=== PATIENT | male | born 2000 | race American Indian/Alaskan Native ===

== ENCOUNTER 2021-06-12 11:07 | Emergency (ER) | payer SELFPAY ==
[2021-06-12] MEDS ORDERED: LIDOCAINE 1%/EPINEPHRINE 1:100,000 VIAL (20 ML) INFILTRATI ONE (11:21)
[2021-06-12] MEDS ORDERED: LIDOCAINE 1%/EPINEPHRINE 1:100,000 VIAL (20 ML) INFILTRATI NR (11:30)
[2021-06-12 11:45] LABS: Amphetamine Screen,Urine Negative; Benzodiazepines Screen,Urine Negative; Cocaine Screen,Urine Negative; Methadone Screen,Urine Negative; Opiate Screen,Urine Negative
[2021-06-12] MEDS ORDERED: TETANUS,DIPH,PERTUSS(ACELL) VACCINE 0.5 ML SYRINGE IM ONE (11:50)
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
[2021-06-12 12:09] LABS: Cannabinoid Screen,Urine Positive
[2021-06-12 12:15] LABS: Bilirubin,Urine NEG (Negative); Blood,Urine NEG (Negative); Color,Urine Yellow (Yellow); Protein,Urine <15 mg/dL mg/dL (Negative); Urobilinogen,Urine < 2.0 mg/dL (<2.0); WBC,Urine < 1.0 /HPF (0.0-6.0)
[2021-06-12 12:27] LABS: RBC,Urine < 1.0 /HPF (0.0-6.0)
[2021-06-12 14:25] LABS: Basophils # (Auto) 0.1 K/mm3 (0.0-0.1); Basophils % (Auto) 0.9 % (0.0-1.8); Eosinophils # (Auto) 0.1 K/mm3 (0.0-0.4); Eosinophils % (Auto) 1.1 % (0.0-4.3); Hematocrit 44.3 % (35.5-45.6); Hemoglobin 14.6 gm/dl (11.8-15.2); Lymphocytes # (Auto) 1.7 K/mm3 (1.2-5.4); Lymphocytes % (Auto) 28.1 % (13.4-35.0); Mean Corpuscular HGB Conc 33 % (32-34); Mean Corpuscular Volume 91 fl (84-94); Monocytes # (Auto) 0.3 K/mm3 (0.0-0.8); Monocytes % (Auto) 5.3 % (0.0-7.3); Platelet Count 275 K/mm3 (140-440); Red Blood Count 4.88 M/mm3 (3.65-5.03); Red Cell Distribution Width 13.1 % (13.2-15.2)
[2021-06-12 14:39] LABS: Blood Urea Nitrogen 9 mg/dL (9-20); Calcium 9.3 mg/dL (8.4-10.2); Hemolysis Index 4
[2021-06-12 14:41] LABS: BUN/Creatinine Ratio 13
[2021-06-12] MEDS ORDERED: LORazepam 1 MG TAB PO ONE (21:00)
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
--- NOTE | 2021-06-13 11:32 | Event Note ---
Date: 06/13/21 Patient is 21 years old male admitted with acute psychotic episode and multiple polysubstance abuse. No overnight issues. Vital signs stable. Labs reviewed and is unremarkable. Waiting for psychiatric inpatient admission.
[2021-06-13] MEDS: DIVALPROEX DR 125 MG TAB PO SCH ×2 (11:53→22:18)
[2021-06-13] MEDS: risperiDONE 0.25 MG TAB PO SCH ×2 (11:54→22:18)
[2021-06-13] MEDS: traZODone 50 MG TAB PO SCH (22:18)
[2021-06-13] MEDS ORDERED: IBUPROFEN 800 MG TAB PO ONE (22:26)
[2021-06-14] MEDS ORDERED: IBUPROFEN 600 MG TAB PO ONE (10:40)
--- NOTE | 2021-06-14 11:16 | Progress Note ---
Subjective - Reason for Consult Consult date: 06/14/21 Reason for consult: [email or web address], SI - Chief Complaint Chief complaint: The patient was seen today. He says he's feeling "so so." The patient says he hears voices but he can't make them out. When asking were they telling him to hurt himself or others, he says "I don't know. I just hear them." He denies SI/HI. REVIEW OF SYSTEMS Constitutional: Negative for weight loss ENT: Negative for stridor Respiratory: Negative for cough or hemoptysis All other systems reviewed and are negative MENTAL STATUS EXAMINATION General Appearance and Behavior: Age appropriate, good hygiene, wearing appropriate clothes. calm, and cooperative Cooperation: Cooperative Psychomotor Behavior: Psychomotor normal Mood: okay Affect and affective range: congruent with stated mood Thought Process: illogical Thought Content: delusions of grandeur, hallucinations Speech: Normal tone and pace Suicidal Ideation: Denies at present Homicidal Ideation: Denies Hallucinations: Denies Delusions: paranoid, delusions of grandeur Impulse Control: poor Insight and Judgment: poor insight and fair judgment Memory: Limited Attention: Attentive Orientation: a/o x 3 Assessment (1) Bipolar Disorder (2) Polysubstance Abuse Treatment Plan [address] 125mg po BID Increase Risperidon 1mg po BID Trazodone 50mg po qhs Disposition: Recommend acute psychiatric inpatient treatment Will follow. Thanks Case staffed with Dr. Roa Mental Status Exam - Vital signs Last Vital Signs Temp 97.2 F L 06/14/21 08:00 Pulse 94 H 06/14/21 08:00 Resp 18 06/14/21 08:00 BP 107/69 06/14/21 08:00 Pulse Ox 99 06/14/21 08:00
--- NOTE | 2021-06-14 11:28 | XRay Report ---
CHEST 2 VIEWS INDICATION / CLINICAL INFORMATION: covid w/cp. COMPARISON: None available. FINDINGS: SUPPORT DEVICES: None. HEART / MEDIASTINUM: No significant abnormality. LUNGS / PLEURA: No significant pulmonary or pleural abnormality. No pneumothorax. ADDITIONAL FINDINGS: No significant additional findings. IMPRESSION: 1. No acute findings. Signer Name: Gary Sanches MD Signed: 06/14/2021 11:24 AM Workstation Name: [employer]
[2021-06-14] MEDS: risperiDONE 0.25 MG TAB PO SCH (11:42)
--- NOTE | 2021-06-14 11:53 | Emergency Department Report ---
Blank Doc - Documentation Documentation: 21-year-old male currently on 1013 with psychosis. Tolerating p.o. medication. Vital signs normal. Covid negative
[2021-06-14] MEDS: DIVALPROEX DR 125 MG TAB PO SCH ×2 (12:18→22:20)
[2021-06-14] MEDS: traZODone 50 MG TAB PO SCH (22:20)
[2021-06-14] MEDS: risperiDONE 1 MG TAB PO SCH (22:20)
[2021-06-14] MEDS ORDERED: ONDANSETRON 4 MG ODT TAB PO ONE (22:41)
[2021-06-14] MEDS ORDERED: MAGNESIUM HYDROXIDE (MOM) ORAL LIQD UDC PO ONE (22:41)
[2021-06-15 05:56] VITALS: BP 141/75
[2021-06-15] MEDS: DIVALPROEX DR 125 MG TAB PO SCH (10:32)
[2021-06-15] MEDS: risperiDONE 1 MG TAB PO SCH (10:32)
--- NOTE | 2021-06-15 11:58 | Progress Note ---
Subjective - Reason for Consult Consult date: 06/15/21 Reason for consult: SI - Chief Complaint Chief complaint: The patient was seen today. He says he feels "good." The patient says "I don't have suicidal thoughts or homicidal thoughts." He then says "and no I'm not hallucinating. I'm just trying to get out of here and go to rehab." REVIEW OF SYSTEMS Constitutional: Negative for weight loss ENT: Negative for stridor Respiratory: Negative for cough or hemoptysis All other systems reviewed and are negative MENTAL STATUS EXAMINATION General Appearance and Behavior: Age appropriate, good hygiene, wearing appropriate clothes. calm, and cooperative Cooperation: Cooperative Psychomotor Behavior: Psychomotor normal Mood: good Affect and affective range: congruent with stated mood Thought Process: goal directed Thought Content: None Speech: Normal tone and pace Suicidal Ideation: Denies Homicidal Ideation: Denies Hallucinations: Denies Delusions: None elicited Impulse Control: Limited Insight and Judgment: Limited insight and fair judgment Memory: Limited Attention: Attentive Orientation: a/o x 3 Assessment (1) Bipolar Disorder (2) Polysubstance Abuse Treatment Plan d/c [address] 125mg po BID Risperidon 1mg po BID Trazodone 50mg po qhs Disposition: Do not Recommend acute psychiatric inpatient treatment. The patient understands that if SI/HI or any fear of endangerment arise he is to seek immediate assistance. The officer captain to give the patient all necessary outpatient resources including substance abuse rehab He is to abstain from all illicit drug use and alcohol The patient is to follow up with outpatient psych in 7 to 14 days upon discharge. Will sign off. Thanks Case staffed with Dr. Roa Mental Status Exam - Vital signs Last Vital Signs Temp 98.3 F 06/15/21 05:55 Pulse 52 L 06/15/21 05:55 Resp 18 06/15/21 05:56 BP 141/75 06/15/21 05:55 Pulse Ox 97 06/15/21 05:56
--- NOTE | 2021-06-15 12:29 | Emergency Department Report ---
Blank Doc - Documentation Documentation: Patient is feeling better this morning. He is not suicidal homicidal. He is not delusional. He is not responding to extraneous stimuli. I do believe the discharge would be appropriate. Psychiatric services is agreed and we will discharge the patient. He has been provided resources for outpatient follow-up.
== END 2021-06-15 13:19 | disposition home or self-care (01) ==
LOC: ED 11:07
DX: S51.811A Laceration without foreign body of right forearm, initial encounter (principal); F17.200 Nicotine dependence, unspecified, uncomplicated; F12.10 Cannabis abuse, uncomplicated; F29 Unspecified psychosis not due to a substance or known physiological condition; R45.850 Homicidal ideations; X58.XXXA Exposure to other specified factors, initial encounter; Y93.89 Activity, other specified; Y92.89 Other specified places as the place of occurrence of the external cause; Y99.8 Other external cause status; Z20.822 Contact with and (suspected) exposure to COVID-19
CPT/HCPCS: 12001; 36415; 71046; 80048; 80307; 81001; 85025; 90471; 90715; 99285; J3490; U0003; 80320; G0480; Q0162